=== PATIENT | female | born 1980 | race Asian ===

== ENCOUNTER 2017-06-08 09:11 | Emergency (ER) | payer OTHER ==
[~2017-06-08] VITALS: Ht 177.8 cm; Wt 64.4 kg
[2017-06-08 09:16] VITALS: TEMP 99.3
[2017-06-08 10:42] VITALS: BP 140/89
== END 2017-06-08 10:44 | disposition home or self-care (01) ==
LOC: ED 09:11
DX: S91.211A Laceration without foreign body of right great toe with damage to nail, initial encounter (principal); W20.8XXA Other cause of strike by thrown, projected or falling object, initial encounter; Y92.098 Other place in other non-institutional residence as the place of occurrence of the external cause
CPT/HCPCS: 99282